=== PATIENT | female | born 1980 | race African-American/Black ===

== ENCOUNTER 2017-03-04 14:06 | Emergency (ER) | payer SELFPAY ==
[2017-03-04 14:15] VITALS: BMI 21.2
--- NOTE | 2017-03-04 14:33 | PDOC ---
Attending Attestation - Resident Resident Name: Odilon Ortiz - ED Attending Attestation I have performed the following: I have examined & evaluated the patient, The case was reviewed & discussed with the resident, I agree w/resident's findings & plan, Exceptions are as noted - HPI HPI: 03/04/17 15:04 36yo F no sig PMH p/w multiple complaints. She reports 4 weeks of watery diarrhea, non bloody, about 5 times per day. Also reports nausea and epigastric pain intermittently for 1 month. Also reports vaginal spotting for 1 week, that she sees when she wipes with toilet paper, approx 1-2 times a day . Does not remember LMP, requests test. Pt is sexually active with 1 partner, does not use protection. Declines GC/CT testing but requests HIV testing. Also reports 1 year of lightheadedness, worse when she is standing outside of work and smoking a cigarette. Pt has not seen a PMD for these symptoms. States she came in today because her family urged her to get checked out for the vaginal spotting. Denies fevers, chills , CP, SOB, focal weakness or numbness, vaginal discharge. - Physicial Exam PE: 03/04/17 15:27 GENERAL: Awake, alert, and fully oriented, in no acute distress, watching videos on her phone HEAD: No signs of trauma EYES: PERRLA, EOMI, sclera anicteric, conjunctiva clear ENT: Auricles normal inspection, hearing grossly normal, nares patent, oropharynx clear without exudates. Moist mucosa NECK: Normal ROM, supple, no lymphadenopathy, JVD, or masses LUNGS: Breath sounds equal, clear to auscultation bilaterally. No wheezes, and no crackles HEART: Regular rate and rhythm, normal S1 and S2, no murmurs, rubs or gallops ABDOMEN: Soft, +LLQ ttp to deep palpation, normoactive bowel sounds. No guarding, no rebound. No masses EXTREMITIES: Normal range of motion, no edema. No clubbing or cyanosis. No cords, erythema, or tenderness NEUROLOGICAL: Normal speech, cranial nerves intact, negative pronator drift, 5/ 5 strength in all 4 extremities, normal sensation to light touch in all 4 extremities, normal cerebellar exam, normal gait, normal reflexes and tone SKIN: Warm, Dry, normal turgor, no rashes or lesions noted. PODIATRIST ORTHOPEDIC: normal external genitalia, os closed, no blood in vault, no midline ttp, + R adnexal ttp. No CMT - Medical Decision Making 03/04/17 15:29 36-year-old female with no significant past medical history presents with multiple complaints including dizziness, diarrhea, nausea, epigastric pain, vaginal spotting. Vitals in triage reveal hypertension however on my recheck the patient's blood pressure is 140/86. Exam is remarkable only for some mild left lower quadrant tenderness to palpation. Differential includes but is not limited to versus gastroenteritis versus colitis versus HIV versus gastritis. -labs -IVF -TVUS -UA/UPT -reassess 03/04/17 16:46 Pt signed out to oncoming attending Dr. Rojo for further eval/management Heart Score/ECG Review #1 03/04/17 16:35 Twelve-lead EKG was performed and reviewed by me. Normal sinus rhythm, rate 83. Normal axis and intervals. No ST elevations. Isolated T-wave inversion in lead 3.
[2017-03-04] MEDS ORDERED: ONDANSETRON 4 MG/2 ML VIAL IVPB ONE (14:41)
[2017-03-04] MEDS ORDERED: FAMOTIDINE 20 MG/50 ML IVPB 50 ML IVPB ONE ×2 (14:41→14:52)
[2017-03-04] MEDS ORDERED: SODIUM CHLORIDE 1,000 ML IV STA (14:41)
[2017-03-04] MEDS ORDERED: MAG HYDROX/AL HYDROX/SIMETH 355 ML ORAL.SUSP PO ONE (14:43)
[2017-03-04] MEDS ORDERED: MAG HYDROX/AL HYDROX/SIMETH 30 ML UNIT-DOSE CUP ONE (14:51)
--- NOTE | 2017-03-04 14:51 | PDOC ---
History of Present Illness - General Chief Complaint: Pain Stated Complaint: Abd pain, diarrhea, dizziness Time Seen by Provider: 03/04/17 14:18 History Source: Patient Exam Limitations: No Limitations - History of Present Illness Initial Comments: 03/04/17 14:43 Patient is a 36F with no significant medical history here today complaining of nonbloody diarrhea for the past 2-3 weeks with about 5 episodes per day. She is also complaining of associated nausea, epigastric abdominal pain, and vaginal spotting. She describes the upper abdominal pain as a dull ache that is constant. She says the vaginal bleeding has been present for about 7 days, and she can't remember when she last had a period. She denies vaginal or pelvic pain. She is sexually active and has no history of STDs. About 2-3 weeks ago, she dropped from 1 ppd to about 1/4 to 1/2 pack per day. She endorses associated nausea, denies fevers, chills. She denies chest pain, shortness of breath, cough. She is also complaining of dizziness and lightheadedness for the past year. She says the dizziness has worsened lately to the point that it's difficult to drive. She further describes this as feeling like she's going to fall over and pass out. She says this commonly happens when she is smoking and has gotten worse for the past 4 months, when she took a new job. Past History - Past Medical History Allergies/Adverse Reactions: Allergies Allergy/AdvReac Type Severity Reaction Status Date / Time No Known Allergies Allergy Verified 03/04/17 14:15 Home Medications: Ambulatory Orders NK [No Known Home Medication] 03/04/17 Other medical history: denies - Suicide/Smoking/Psychosocial Hx Smoking History: Current every day smoker Number of Cigarettes Smoked Daily: 8 Information on smoking cessation initiated: No Hx Alcohol Use: No Drug/Substance Use Hx: No Substance Use Type: None Review of Systems - Review of Systems Able to Perform ROS?: Yes Comments:: 03/04/17 14:57 GENERAL/CONSTITUTIONAL: No fever or chills. No weakness. HEAD, EYES, EARS, NOSE AND THROAT: No change in vision. No ear pain or discharge. No sore throat. CARDIOVASCULAR: No chest pain or shortness of breath RESPIRATORY: No cough, wheezing, or hemoptysis. GASTROINTESTINAL: Positive for nausea. Negative for vomiting, diarrhea or constipation. GENITOURINARY: No dysuria, frequency, or change in urination. MUSCULOSKELETAL: No joint or muscle swelling or pain. No neck or back pain. SKIN: No rash NEUROLOGIC: No headache, loss of consciousness, or change in strength/ sensation. Positive for light-headedness and dizziness. ENDOCRINE: No increased thirst. Positive for weight loss. HEMATOLOGIC/LYMPHATIC: No anemia, easy bleeding, or history of blood clots. ALLERGIC/IMMUNOLOGIC: No hives or skin allergy. *Physical Exam - Vital Signs Last Vital Signs Temp Pulse Resp BP Pulse Ox 98.2 F 92 H 19 158/114 98 03/04/17 14:13 03/04/17 14:13 03/04/17 14:13 03/04/17 14:13 03/04/17 14:13 - Physical Exam Comments: 03/04/17 15:03 GENERAL: Awake, alert, and fully oriented, in no acute distress HEAD: No signs of trauma, normocephalic, atraumatic EYES: PERRLA, EOMI, sclera anicteric, conjunctiva clear ENT: Auricles normal inspection, hearing grossly normal, nares patent, oropharynx clear without exudates. Dry mucosa NECK: Normal ROM, supple, no lymphadenopathy, JVD, or masses LUNGS: No distress, speaks full sentences, clear to auscultation bilaterally HEART: Regular rate and rhythm, normal S1 and S2, no murmurs, rubs or gallops, peripheral pulses normal and equal bilaterally. ABDOMEN: Soft, mild tenderness in epigastrium and lower left quadrant, normoactive bowel sounds. No guarding, no rebound. No masses EXTREMITIES: Normal inspection, Normal range of motion, no edema. No clubbing or cyanosis. NEUROLOGICAL: Cranial nerves II through XII grossly intact. Normal speech, normal gait, no focal sensorimotor deficits SKIN: Warm, Dry, normal turgor, no rashes or lesions noted. ED Treatment Course - LABORATORY CBC & Chemistry Diagram: 03/04/17 15:10 03/04/17 15:10 Medical Decision Making - Medical Decision Making 03/04/17 15:04 36F with no significant PMH here today complaining of vaginal bleeding, lightheadedness, dizziness, abdominal pain and diarrhea. Vital signs stable and normal. Differential diagnosis is very broad, and includes, but is not limited to: , anemia, dehydration secondary to diarrhea, metabolic derangement , arrhythmia. Will evaluate with abdominal labs, pelvic exam, ua, and upreg. Will treat with pepcid, zofran, maalox and normal saline. Will add on chest x- ray pending upreg. 03/04/17 16:36 Laboratory Tests 03/04/17 03/04/17 03/04/17 14:59 15:00 15:10 WBC 9.6 Hgb 12.7 Hct 37.7 Plt Count 193 Creatinine Creat Clearance w eGFR Total Bilirubin Troponin I < 0.02 Urine RBC 4 Urine WBC 3 03/04/17 15:10 WBC Hgb Hct Plt Count Creatinine 0.5 L Creat Clearance w eGFR > 60 Total Bilirubin 1.4 H Troponin I Urine RBC Urine WBC CBC normal, trop negative, kidney function normal, ua negative, upreg negative. Bili elevated to 1.4. 03/04/17 18:03 US shows leiomyoma, right sided ovarian cyst, no evidence of torsion. 03/04/17 18:14 Patient's pain improved. Does not want HIV test requiring an extra blood draw. Will discharge home with return precautions. Patient is alert, ambulatory and improved at discharge. *DC/Admit/Observation/Transfer Diagnosis at time of Disposition: Uterine fibroid Qualifiers: Uterine leiomyoma location: submucous Qualified Code(s): D25.0 - Submucous leiomyoma of uterus; D25.0 - Submucous leiomyoma of uterus Diarrhea Qualifiers: Diarrhea type: unspecified type Qualified Code(s): R19.7 - Diarrhea, unspecified; R19.7 - Diarrhea, unspecified - Discharge Dispostion Disposition: HOME Condition at time of disposition: Good Admit: No - Patient Instructions Printed Discharge Instructions: DI for Uterine Fibroids, DI for Diarrhea and Traveler's Diarrhea -- Adult Additional Instructions: 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 Please come back if your symptoms return, worsen or are concerning. -Dr Ortiz
[2017-03-04] MEDS ORDERED: ONDANSETRON 4 MG/2 ML VIAL ONE (14:52)
[2017-03-04 15:16] LABS: BASOPHIL 0.7 % (0-2.0); EOSINOPHIL 0.8 % (0-4.5); MCHC 33.8 g/dl (32.0-36.0); MEAN CELL VOLUME 97.5 fl (80-96); MEAN PLT VOLUME 9.9 fl (7.5-11.1); NEUTROPHILS 71.8 % (42.8-82.8); PLATELET COUNT 193 K/MM3 (134-434); WHITE BLOOD COUNT 9.6 K/mm3 (4.0-10.0)
[2017-03-04 15:51] LABS: ALBUMIN 3.3 g/dl (3.4-5.0); ANION GAP 8 (8-16); CALCIUM 8.8 mg/dL (8.5-10.1); CO2 26 mmol/L (21-32); CREATININE 0.5 mg/dL (0.55-1.02); GLUCOSE,RANDOM 78 mg/dL (74-106); SGPT/ALT 28 U/L (12-78)
[2017-03-04 15:52] LABS: BILIRUBIN,TOTAL 1.4 mg/dL (0.2-1.0)
[2017-03-04 15:53] LABS: ALK PHOS 55 U/L (45-117)
[2017-03-04 15:54] LABS: SGOT/AST 57 U/L (15-37)
[2017-03-04 15:55] LABS: TROPONIN I < 0.02 ng/ml (0.00-0.05)
[2017-03-04 15:58] LABS: CPK 101 IU/L (26-192)
[2017-03-04 16:00] LABS: URINE APPEARANCE CLOUDY; URINE BILIRUBIN NEGATIVE (NEGATIVE); URINE BLOOD 2+ (NEGATIVE); URINE COLOR AMBER; URINE GLUCOSE (UA) NEGATIVE (NEGATIVE); URINE KETONE NEGATIVE (NEGATIVE); URINE NITRITE NEGATIVE (NEGATIVE); URINE PROTEIN NEGATIVE (NEGATIVE); URINE UROBILINOGEN NEGATIVE mg/dL (0.2-1.0)
[2017-03-04 16:21] LABS: URINE BACTERIA RARE /hpf (NONE SEEN); URINE HYALINE CAST 1 /lpf; URINE MUCUS MANY; URINE RBC 4 /hpf (0-3); URINE WBC 3 /hpf (3-5)
[2017-03-04 18:38] VITALS: BP 150/90; PULSE 88; TEMP 97.6
[2017-03-04 19:11] LABS: URINE LEUK ESTERASE Negative (NEGATIVE)
--- NOTE | 2017-03-05 12:42 | EKG ---
Test Reason : Blood Pressure : / mmHG Vent. Rate : 083 BPM Atrial Rate : 083 BPM P-R Int : 134 ms QRS Dur : 084 ms QT Int : 376 ms P-R-T Axes : 039 035 014 degrees QTc Int : 441 ms NORMAL SINUS RHYTHM NORMAL ECG NO PREVIOUS ECGS AVAILABLE Confirmed by ALEXYS NELSON MD ([id number]) on 03/05/2017 12:42:38 PM Referred By: Confirmed By:ALEXYS NELSON MD
== END 2017-03-04 18:37 | disposition home or self-care (01) ==
LOC: JER 14:06
PROC: 3E033GC Introduction of Other Therapeutic Substance into Peripheral Vein, Percutaneous Approach (ICD-10-PCS; principal; 2017-03-04)
PROC: 3E0337Z Introduction of Electrolytic and Water Balance Substance into Peripheral Vein, Percutaneous Approach (ICD-10-PCS; 2017-03-04)
DX: D25.0 Submucous leiomyoma of uterus (principal); R19.7 Diarrhea, unspecified
CPT/HCPCS: 36415; 76830-TC; 80053; 81003; 81015; 83690; 84484; 84703; 85025; 93005; 93010; 99283-25